=== PATIENT | male | born 1955 | race Caucasian/White ===

== ENCOUNTER 2020-01-20 07:25 | Day surgery (SDC) | payer MEDICARE, OTHER ==
--- NOTE | 2020-01-20 07:41 | PCM.PREANE ---
Preanesthetic Assessment - Procedure Proposed Procedure: Left eye cataract extraction with IOL - Anesthesia/Transfusion/Family Hx Anesthesia History: Prior Anesthesia Without Reaction Family History of Anesthesia Reaction: No Transfusion History: No Prior Transfusion(s) - Review of Systems General: No Symptoms Pulmonary: No Symptoms Cardiovascular: No Symptoms Gastrointestinal: No Symptoms Neurological: Seizure (in high school) - Physical Assessment NPO Status Date: 01/19/20 NPO Status Time: 00:00 Height: 1.73 m Weight: 56.699 kg ASA Class: 3 Mental Status: Alert & Oriented x3 Airway Class: Mallampati = 2 Dentition: Reports: Caries Thyro-Mental Finger Breadths: 3 Mouth Opening Finger Breadths: 3 ROM/Head Extension: Full Lungs: Clear to Auscultation, Normal Respiratory Effort, Decreased Breath Sounds Cardiovascular: Regular Rate, Regular Rhythm - Allergies Allergies/Adverse Reactions: Allergies Allergy/AdvReac Type Severity Reaction Status Date / Time No Known Allergies Allergy Verified 01/19/20 14:58 - Blood Blood Available: No Product(s) Available: None - Anesthesia Plan Pre-Op Medication Ordered: None - Acknowledgements Anesthesia Type Planned: MAC Pt an Appropriate Candidate for the Planned Anesthesia: Yes Alternatives and Risks of Anesthesia Discussed w Pt/Guardian: Yes Pt/Guardian Understands and Agrees with Anesthesia Plan: Yes PreAnesthesia Questionnaire Gastrointestinal History: Reports: GERD - SUBSTANCE USE Smoking Status *Q: Current Every Day Smoker Tobacco Use Within Last Twelve Months: Cigarettes Second Hand Smoke Exposure: No Days Per Week of Alcohol Use: 1 Number of Drinks Per Day: 1 Total Drinks Per Week: 1 Recreational Drug Use History: No - HOME MEDS Home Medications: Home Meds Ascorbic Acid [Vitamin C] 500 mg PO DAILY 01/19/20 [History] Calcium Carb/Vitamin D3/Vit K1 [Calcium + D Soft Chewable Tab] 1 tab PO DAILY 01/19/20 [History] Fluticasone/Vilanterol [Breo Ellipta 200-25 MCG Inhalation Kit] 1 puff INH DAILY 01/19/20 [History] Hydrocortisone [Hydrocortisone 1% Crm] 1 dose TOP BID PRN 01/19/20 [History] Ibuprofen 400 mg PO Q6H PRN 01/19/20 [History] Wheat Dextrin [Benefiber] 1 dose PO DAILY PRN 01/19/20 [History] - CURRENT (IN HOUSE) MEDS Current Meds: Current Medications Brimonidine Tartrate (Alphagan 0.2% Ophth Soln) 0 ml EYELF ASDIRECTED MEGHA Stop: 01/20/20 18:00 Cefuroxime Sodium (Zinacef) 0 mg EYELF ASDIRECTED MEGHA Stop: 01/20/20 18:00 Lidocaine HCl (Xylocaine-Mpf 1%) 0 ml INJECT ASDIRECTED MEGHA Stop: 01/20/20 18:00 Phenylephrine HCl (Phil-Synephrine 2.5% Ophth Soln) 0 ml EYELF ASDIRECTED MGEHA Stop: 01/20/20 18:00 Pilocarpine HCl (Pilocar 4% Ophth Soln) 0 ml EYELF ASDIRECTED MEGHA Stop: 01/20/20 18:00 Polymyxin/Trimethoprim Sulfate (Polytrim Ophth Soln) 0 ml EYELF ASDIRECTED MEGHA Stop: 01/20/20 18:00 Tetracaine HCl (Tetracaine 0.5% Steri-Unit Rama) 0 ml EYEBOTH ASDIRECTED MEGHA Stop: 01/20/20 18:00 Tropicamide (Mydriacyl 1% Ophth Soln) 0 ml EYELF ASDIRECTED MEGHA Stop: 01/20/20 18:00
[2020-01-20] MEDS: Polymyxin B/Trimethoprim 10 ML Bottle EYELF SCH ×4 (07:52→09:51)
[2020-01-20] MEDS: Brimonidine 0.2% Ophth Soln 5 ML Bottle EYELF SCH ×4 (07:58→09:51)
[2020-01-20] MEDS: Phenylephrine 2.5% Ophth Soln 2 ML Bot EYELF SCH ×6 (08:05→09:30)
[2020-01-20] MEDS: Tropicamide 1% Ophth Soln 15 ML Bottle EYELF SCH ×4 (08:17→09:06)
[2020-01-20] MEDS: Tetracaine HCl/PF 0.5% 4 ML Bottle EYEBOTH SCH ×3 (09:24→09:38)
[2020-01-20] MEDS: Cefuroxime 10 MG/ML SYRINGE EYELF SCH ×2 (09:24→09:51)
[2020-01-20] MEDS: Lidocaine 1% PF 2 ML SDV INJECT SCH ×2 (09:24→09:39)
[2020-01-20] MEDS: Pilocarpine 4% Ophth Soln 15 ML Bot EYELF SCH ×2 (09:25→09:51)
--- NOTE | 2020-01-20 09:57 | PCM48HPAN ---
Post Anesthesia Note - EVALUATION WITHIN 48HRS OF ANESTHETIC Vital Signs in Normal Range: Yes Patient Participated in Evaluation: Yes Respiratory Function Stable: Yes Airway Patent: Yes Cardiovascular Function Stable: Yes Hydration Status Stable: Yes Pain Control Satisfactory: Yes Nausea and Vomiting Control Satisfactory: Yes Mental Status Recovered: Yes Vital Signs: Last Vital Signs Temp 36.9 C 01/20/20 07:25 Pulse 74 01/20/20 07:25 Resp 20 01/20/20 07:25 BP 106/76 01/20/20 07:25 Pulse Ox 92 L 01/20/20 07:25
== END 2020-01-20 09:58 | disposition home or self-care (01) ==
LOC: JD.SDS 07:25
PROVIDERS: ATTEND Ophthalmology
DX: H25.813 Combined forms of age-related cataract, bilateral (principal); H40.053 Ocular hypertension, bilateral; H16.223 Keratoconjunctivitis sicca, not specified as Sjogren's, bilateral; H16.103 Unspecified superficial keratitis, bilateral; H02.831 Dermatochalasis of right upper eyelid; H02.834 Dermatochalasis of left upper eyelid; H53.032 Strabismic amblyopia, left eye; H21.81 Floppy iris syndrome; K21.9 Gastro-esophageal reflux disease without esophagitis; J44.9 Chronic obstructive pulmonary disease, unspecified; F17.210 Nicotine dependence, cigarettes, uncomplicated; Z79.899 Other long term (current) drug therapy; Z79.51 Long term (current) use of inhaled steroids
CPT/HCPCS: 66984; J0697; J2001; V2632

== ENCOUNTER 2023-01-29 08:36 | Emergency (ER) | payer MEDICARE, BC ==
[2023-01-29] MEDS ORDERED: Sodium Chloride 0.9% 1,000 ML IV SCH (09:30)
[2023-01-29 09:45] LABS: BASOPHILS ABSOLUTE AUTO 0.01 K/mm3 (0.01-0.08); BASOPHILS PERCENT AUTO 0.1 % (0.1-1.2); EOSINOPHILS ABSOLUTE AUTO 0.06 K/mm3 (0.04-0.54); EOSINOPHILS PERCENT AUTO 0.7 (0.8-7.0); HEMATOCRIT 46.4 % (40.1-51.0); HEMOGLOBIN 15.7 gm/dl (13.7-17.5); IMMATURE GRAN ABSOLUTE AUTO 0.01 K/mm3 (0.00-0.10); IMMATURE GRAN PERCENT AUTO 0.1 % (<=1.0); LYMPHOCYTES ABSOLUTE AUTO 1.03 K/mm3 (1.32-3.57); LYMPHOCYTES PERCENT AUTO 11.4 % (21.8-53.1); MEAN CORPUSCULAR HEMOGLOBIN 31.2 pg (25.7-32.2); MEAN CORPUSCULAR HGB CONC 33.8 g/dl (32.2-35.5); MEAN CORPUSCULAR VOLUME 92.1 fl (79.0-92.2); MEAN PLATELET VOLUME 8.4 fl (9.4-12.3); MONOCYTES PERCENT AUTO 12.2 % (5.3-12.2); NEUTROPHILS ABSOLUTE AUTO 6.84 K/mm3 (1.78-5.38); NEUTROPHILS PERCENT AUTO 75.5 % (34.0-67.9); PLATELET COUNT,PLT 234 K/mm3 (163-337); RED BLOOD CELL COUNT 5.04 M/mm3 (4.63-6.08); WHITE BLOOD CELL COUNT,WBC 9.05 K/mm3 (4.23-9.07)
[2023-01-29] MEDS ORDERED: Ondansetron 4 MG/2 ML SDV IVPUSH ONE (09:51)
[2023-01-29 10:01] LABS: INR 0.96; PROTHROMBIN TIME 10.3 SECONDS (9.7-12.0)
[2023-01-29 10:12] LABS: A/G RATIO 0.9 (1-2); ALBUMIN 3.3 g/dl (3.4-5.0); ANION GAP 10.9 (5-15); BUN/CREATININE RATIO 18.9 (14-18); CALCIUM 8.7 mg/dL (8.5-10.1); CREATININE 0.9 mg/dL (0.7-1.3); EST CRCL DRUG DOSING (CG) 60.63 mL/min; MAGNESIUM 2.2 mg/dL (1.8-2.4); PROTEIN TOTAL,TP 6.9 g/dl (6.4-8.2)
[2023-01-29 10:14] LABS: POTASSIUM,K 3.9 mEq/L (3.5-5.1)
[2023-01-29 11:01] LABS: APPEARANCE,URINE CLEAR (Clear); BILIRUBIN,URINE NEGATIVE (Negative); COLOR,URINE YELLOW (Yellow); GLUCOSE,URINE NEGATIVE (Negative); KETONES,URINE NEGATIVE (Negative); LEUKOCYTE ESTERASE,URINE NEGATIVE (Negative); NITRITE,URINE NEGATIVE (Negative); OCCULT BLOOD,URINE NEGATIVE (Negative); PH,URINE 6.5 (5.0-8.0); PROTEIN,URINE NEGATIVE (Negative); UROBILINOGEN,URINE 0.2 (0.2-1.0)
[2023-01-29] MEDS ORDERED: Sodium Chloride 0.9% 10 ML Syringe FLUSH ONE (11:24)
[2023-01-29] MEDS ORDERED: Iopamidol 612 MG/ML 100 ML Bottle IVPUSH ONE (11:24)
[2023-01-29] MEDS ORDERED: Polyethylene Glycol/Electrolytes 4,000 ML Bottle PO ONE (13:32)
== END 2023-01-29 14:16 | disposition home or self-care (01) ==
LOC: JD.ED 08:36
DX: R33.9 Retention of urine, unspecified (principal); K59.00 Constipation, unspecified; K62.7 Radiation proctitis; Z72.0 Tobacco use
CPT/HCPCS: 36415; 71045; 71260; 74177; 80053; 81003; 83735; 84484; 85025; 85610; 85730; 93005; 96360; 96361; 99284; A9270; J3490; J7030; Q9967; 93010